=== PATIENT | female | born 1990 | race African-American/Black ===

== ENCOUNTER 2018-10-30 06:02 | Day surgery (SDC) | payer OTHER ==
[~2018-10-30] VITALS: Ht 165.1 cm; Wt 54.3 kg
[~2018-10-30 06:02] MED LIST: OMEP40CA6 PO
[2018-10-30 07:02] VITALS: Ht 165.1 cm; Wt 54.3 kg
[2018-10-30 08:16] VITALS: BP 124/74; PULSE 75; RESP 20
[2018-10-30] MEDS ORDERED: FENTAnyl 50 MCG/ML VIAL ONE (08:24)
[2018-10-30] MEDS ORDERED: MIDAZOLAM 1 MG/ML 2 ML INJ ONE ×3 (08:24)
[2018-10-30 08:35] VITALS: BP 118/61; PULSE 79; RESP 16
== END 2018-10-30 10:00 | disposition home or self-care (01) ==
LOC: GIL 06:02
PROVIDERS: ATTEND Internal Medicine Gastroenterology
DX: K44.9 Diaphragmatic hernia without obstruction or gangrene (principal); K21.9 Gastro-esophageal reflux disease without esophagitis
CPT/HCPCS: 43239; 84703; 88305; 88312; J2250; J3010